=== PATIENT | male | born 1980 | race Caucasian/White ===

== ENCOUNTER 2025-02-07 05:23 | Inpatient (IN) ==
[2025-02-07] MEDS: ONDANSETRON 4 MG/2 ML VIAL IV ONE (05:50)
[2025-02-07] MEDS: FAMOTIDINE/PF 20 MG/2 ML VIAL IV ONE (05:51)
[2025-02-07] MEDS: HYDROmorphone 0.5 MG/0.5 ML SYRINGE IV PRN (05:51)
[2025-02-07] MEDS: 0.9 % SODIUM CHLORIDE 1,000 ML IV ONE ×2 (05:51→06:48)
[2025-02-07 06:04] LABS: Basophils # (Auto) 0.10 K/mcL (0.00-0.30); Basophils % (Auto) 0.6 % (0.0-2.0); Eosinophils # (Auto) 0.46 K/mcL (0.00-0.70); Eosinophils % (Auto) 2.8 % (0.0-7.0); Hematocrit 45.5 % (40.1-51.0); Hemoglobin 14.1 g/dL (13.7-17.5); Lymphocytes # (Auto) 4.38 K/mcL (1.50-4.80); Lymphocytes % (Auto) 26.5 % (15.5-49.0); Mean Corpuscular HGB Conc 31.0 g/dL (31.0-36.0); Monocytes # (Auto) 1.27 K/mcL (0.10-0.90); Monocytes % (Auto) 7.7 % (1.0-12.0); Neutrophils % (Auto) 61.9 % (38.0-78.0); Platelet Count 344 K/mcL (140-440); RBC 4.84 M/mcL (4.63-6.08); WBC 16.5 K/mcL (4.5-11.0)
[2025-02-07 06:32] LABS: ALT/SGPT 90 U/L (<40); AST/SGOT 154 U/L (<40); Albumin 4.1 gm/dL (3.2-5.2); Albumin/Globulin Ratio 1.3 (1.0-2.3); Alkaline Phosphatase 116 U/L (39-117); Anion Gap 15.0 (8.0-16.0); Bilirubin,Total 0.9 mg/dL (0.1-1.0); Blood Urea Nitrogen 38 mg/dL (6-20); Calcium 9.6 mg/dL (8.6-10.4); Carbon Dioxide 16 mmol/L (22-30); Chloride 107 mmol/L (96-108); Globulin 3.2 gm/dL (2.2-3.7); Glucose 150 mg/dL (70-105); Potassium 4.4 mmol/L (3.3-5.1); Sodium 138 mmol/L (133-145)
[2025-02-07] MEDS: HYDROmorphone 0.5 MG/0.5 ML SYRINGE IV ONE ×2 (06:32→07:35)
[2025-02-07] MEDS: PROCHLORPERAZINE 10 MG/2 ML VIAL IV ONE (07:41)
[2025-02-07] MEDS: diphenhydrAMINE 50 MG/ML VIAL IV ONE (07:41)
[2025-02-07] MEDS: DICYCLOMINE 20 MG/2 ML VIAL IM ONE (07:41)
[2025-02-07 08:27] LABS: CRP,High Sensitivity 31.5 mg/L (1.0-3.0)
[2025-02-07] MEDS: ACETAMINOPHEN 1,000 MG/100 ML BAG IV ONE (10:22)
[2025-02-07 11:08] LABS: HDL Cholesterol 55 mg/dL (>40); LDL Cholesterol,Calculated 119 mg/dL (<100); Triglycerides 76 mg/dL (<150)
[2025-02-07] MEDS ORDERED: TACROLIMUS 0.5 MG CAPSULE PO SCH (16:36)
[2025-02-07] MEDS ORDERED: ACETAMINOPHEN 650 MG/65 ML BAG IV PRN (16:36)
[2025-02-07] MEDS: ONDANSETRON 4 MG/2 ML VIAL IV PRN (17:01)
[2025-02-07] MEDS: LACTATED RINGERS 1,000 ML IV SCH ×3 (17:02→23:12)
[2025-02-07] MEDS: PANTOPRAZOLE 40 MG VIAL IV ONE (17:45)
[2025-02-07 18:39] LABS: Hematocrit 47.0 % (40.1-51.0); Hemoglobin 14.5 g/dL (13.7-17.5)
[2025-02-07 18:56] LABS: Anion Gap 13.0 (8.0-16.0); Blood Urea Nitrogen 42 mg/dL (6-20); Calcium 8.7 mg/dL (8.6-10.4); Carbon Dioxide 18 mmol/L (22-30); Chloride 108 mmol/L (96-108); Glucose 171 mg/dL (70-105); Potassium 6.4 mmol/L (3.3-5.1); Sodium 139 mmol/L (133-145)
[2025-02-07] MEDS: TACROLIMUS 1 MG CAPSULE PO SCH (21:03)
[2025-02-07] MEDS: HEPARIN 5,000 UNIT/ML VIAL SQ SCH (21:03)
[2025-02-07 21:31] LABS: POC Blood Urea Nitrogen 45.0 (6-20); POC CO2 18.0 (22-30); POC Calcium, Ionized 1.13 (1.16-1.32); POC Glucose, Random 155.0 (70-105)
[2025-02-07] MEDS: SODIUM ZIRCONIUM CYCLOSILICATE 10 GM PACKET PO ONE (22:14)
[2025-02-07] MEDS: LIDOCAINE 2% URO-JET 10 ML JEL.PF.APP UR ONE (22:14)
[2025-02-07 22:20] LABS: Anion Gap 12.0 (8.0-16.0); Blood Urea Nitrogen 43 mg/dL (6-20); Calcium 8.5 mg/dL (8.6-10.4); Carbon Dioxide 15 mmol/L (22-30); Chloride 111 mmol/L (96-108); Glucose 151 mg/dL (70-105); Potassium 6.8 mmol/L (3.3-5.1); Sodium 138 mmol/L (133-145)
[2025-02-07] MEDS: 0.9 % SODIUM CHLORIDE 10 ML SYRINGE IV SCH (22:41)
[2025-02-07 23:07] LABS: Bilirubin,Urine SMALL mg/dL (Negative); Color,Urine YELLOW; Glucose,Urine (UA) NEGATIVE (Negative); Ketones,Urine NEGATIVE (Negative); Leukocyte Esterase,Urine NEGATIVE /uL (Negative); Mucus,Urine Mod /hpf; PH,Urine 5.5 (5.0-9.0); Protein,Urine TRACE mg/dL (Negative); Specific Gravity,Urine 1.025 (1.000-1.035); Urobilinogen,Urine 0.2 mg/dL
[2025-02-07] MEDS: CALCIUM GLUCONATE 4.65 MEQ in DEXTROSE 5% IN WATER 50 ML IV ONE (23:07)
[2025-02-07] MEDS: CALCIUM GLUCONATE 4.65 MEQ/10 ML VIAL ONE (23:12)
[2025-02-07] MEDS: SODIUM BICARBONATE VIAL 150 MEQ in WATER FOR INJECTION,STERILE 850 ML IV SCH (23:39)
[2025-02-08 01:30] LABS: Hematocrit 46.3 % (40.1-51.0); Hemoglobin 14.4 g/dL (13.7-17.5)
[2025-02-08 01:57] LABS: Anion Gap 13.0 (8.0-16.0); Blood Urea Nitrogen 47 mg/dL (6-20); Calcium 8.7 mg/dL (8.6-10.4); Carbon Dioxide 17 mmol/L (22-30); Chloride 108 mmol/L (96-108); Glucose 152 mg/dL (70-105); Potassium 6.0 mmol/L (3.3-5.1); Sodium 138 mmol/L (133-145)
[2025-02-08] MEDS: SODIUM ZIRCONIUM CYCLOSILICATE 10 GM PACKET PO ONE (02:47)
[2025-02-08] MEDS: METOPROLOL TARTRATE 25 MG TABLET PO ONE (02:50)
[2025-02-08 06:54] LABS: Basophils # (Auto) 0.03 K/mcL (0.00-0.30); Basophils % (Auto) 0.1 % (0.0-2.0); Eosinophils # (Auto) 0 K/mcL (0.00-0.70); Eosinophils % (Auto) 0 % (0.0-7.0); Hematocrit 45.2 % (40.1-51.0); Hemoglobin 14.2 g/dL (13.7-17.5); Lymphocytes # (Auto) 0.84 K/mcL (1.50-4.80); Lymphocytes % (Auto) 3.0 % (15.5-49.0); Mean Corpuscular HGB Conc 31.4 g/dL (31.0-36.0); Monocytes # (Auto) 2.20 K/mcL (0.10-0.90); Monocytes % (Auto) 7.9 % (1.0-12.0); Neutrophils % (Auto) 88.7 % (38.0-78.0); Platelet Count 290 K/mcL (140-440); RBC 4.76 M/mcL (4.63-6.08); WBC 27.9 K/mcL (4.5-11.0)
[2025-02-08 07:00] LABS: C-Reactive Protein 13.1 mg/dL (0.03-0.80)
[2025-02-08 07:01] LABS: ALT/SGPT 261 U/L (<40); AST/SGOT 143 U/L (<40); Albumin 3.9 gm/dL (3.2-5.2); Albumin/Globulin Ratio 1.3 (1.0-2.3); Alkaline Phosphatase 113 U/L (39-117); Anion Gap 14.0 (8.0-16.0); Bilirubin,Direct 0.5 mg/dL (<0.3); Bilirubin,Total 0.7 mg/dL (0.1-1.0); Blood Urea Nitrogen 48 mg/dL (6-20); Calcium 8.5 mg/dL (8.6-10.4); Carbon Dioxide 18 mmol/L (22-30); Chloride 107 mmol/L (96-108); Globulin 3.1 gm/dL (2.2-3.7); Glucose 135 mg/dL (70-105); Phosphorous 3.7 mg/dL (2.5-4.5); Potassium 5.3 mmol/L (3.3-5.1); Sodium 139 mmol/L (133-145); Triglycerides 85 mg/dL (<150); Uric Acid 10.3 mg/dL (2.5-8.0)
[2025-02-08] MEDS: PANTOPRAZOLE 40 MG VIAL IV SCH (08:21)
[2025-02-08] MEDS: CALCITRIOL 0.25 MCG CAPSULE PO SCH (08:22)
[2025-02-08] MEDS: TACROLIMUS 0.5 MG CAPSULE PO SCH (08:22)
[2025-02-08] MEDS: SODIUM BICARBONATE VIAL 150 MEQ in WATER FOR INJECTION,STERILE 850 ML IV SCH ×2 (08:41→18:29)
[2025-02-08 09:37] LABS: Anion Gap 13.0 (8.0-16.0); Blood Urea Nitrogen 47 mg/dL (6-20); Calcium 8.3 mg/dL (8.6-10.4); Carbon Dioxide 20 mmol/L (22-30); Chloride 106 mmol/L (96-108); Glucose 141 mg/dL (70-105); Potassium 5.6 mmol/L (3.3-5.1); Sodium 139 mmol/L (133-145)
[2025-02-08] MEDS: IPRATROPIUM/ALBUTEROL 3 ML AMPUL.NEB NEB PRN (10:25)
[2025-02-08] MEDS: IPRATROPIUM/ALBUTEROL 3 ML AMPUL.NEB NEB ONE (12:25)
[2025-02-08] MEDS: IPRATROPIUM/ALBUTEROL 3 ML AMPUL.NEB NEB SCH (14:06)
[2025-02-08] MEDS: FUROSEMIDE 100 MG/10 ML VIAL IV ONE (14:18)
[2025-02-08] MEDS: POLYETHYLENE GLYCOL 3350 17 GM PACKET PO ONE (14:18)
[2025-02-08 16:26] LABS: Anion Gap 12.0 (8.0-16.0); Blood Urea Nitrogen 41 mg/dL (6-20); Calcium 7.7 mg/dL (8.6-10.4); Carbon Dioxide 34 mmol/L (22-30); Chloride 90 mmol/L (96-108); Glucose 153 mg/dL (70-105); Potassium 4.7 mmol/L (3.3-5.1); Sodium 136 mmol/L (133-145)
[2025-02-08] MEDS: OXYBUTYNIN CHLORIDE 5 MG TAB.XL.24H PO SCH (16:32)
[2025-02-08] MEDS: MELATONIN 3 MG TABLET PO SCH (20:08)
[2025-02-08] MEDS: ZOLPIDEM 5 MG TABLET PO SCH (20:08)
[2025-02-08 20:40] LABS: Anion Gap 13.0 (8.0-16.0); Blood Urea Nitrogen 48 mg/dL (6-20); Calcium 8.1 mg/dL (8.6-10.4); Carbon Dioxide 22 mmol/L (22-30); Chloride 99 mmol/L (96-108); Glucose 161 mg/dL (70-105); Potassium 4.9 mmol/L (3.3-5.1); Sodium 134 mmol/L (133-145)
[2025-02-08] MEDS: METOPROLOL TARTRATE 50 MG TABLET PO SCH (23:20)
[2025-02-08] MEDS: CYCLOBENZAPRINE 10 MG TABLET PO PRN (23:55)
[2025-02-09] MEDS ORDERED: VANCOMYCIN PER PHARMACY IV SCH (03:15)
[2025-02-09] MEDS ORDERED: 0.9 % SODIUM CHLORIDE 10 ML SYRINGE IV PRN (03:19)
[2025-02-09] MEDS ORDERED: ALTEPLASE 2 MG VIAL IV PRN (03:19)
[2025-02-09] MEDS: DOXYCYCLINE 100 MG in DEXTROSE 5% IN WATER 100 ML IV ONE (03:25)
[2025-02-09] MEDS: LEVOFLOXACIN 750 MG/150 ML BAG IV SCH (03:38)
[2025-02-09] MEDS: VANCOMYCIN 2,000 MG in 0.9 % SODIUM CHLORIDE 500 ML IV ONE (04:31)
[2025-02-09 07:30] LABS: ALT/SGPT 144 U/L (<40); AST/SGOT 57 U/L (<40); Albumin 3.5 gm/dL (3.2-5.2); Albumin/Globulin Ratio 1.1 (1.0-2.3); Alkaline Phosphatase 86 U/L (39-117); Anion Gap 16.0 (8.0-16.0); Bilirubin,Direct 0.6 mg/dL (<0.3); Bilirubin,Total 1.1 mg/dL (0.1-1.0); Blood Urea Nitrogen 55 mg/dL (6-20); Calcium 7.8 mg/dL (8.6-10.4); Carbon Dioxide 21 mmol/L (22-30); Chloride 96 mmol/L (96-108); Globulin 3.3 gm/dL (2.2-3.7); Glucose 140 mg/dL (70-105); Phosphorous 3.8 mg/dL (2.5-4.5); Potassium 5.1 mmol/L (3.3-5.1); Sodium 133 mmol/L (133-145); Triglycerides 117 mg/dL (<150); Uric Acid 10.6 mg/dL (2.5-8.0)
[2025-02-09 07:41] LABS: Basophils # (Auto) 0.04 K/mcL (0.00-0.30); Basophils % (Auto) 0.1 % (0.0-2.0); Eosinophils # (Auto) 0 K/mcL (0.00-0.70); Eosinophils % (Auto) 0 % (0.0-7.0); Hematocrit 43.7 % (40.1-51.0); Hemoglobin 13.7 g/dL (13.7-17.5); Lymphocytes # (Auto) 1.29 K/mcL (1.50-4.80); Lymphocytes % (Auto) 4.0 % (15.5-49.0); Mean Corpuscular HGB Conc 31.4 g/dL (31.0-36.0); Monocytes # (Auto) 2.65 K/mcL (0.10-0.90); Monocytes % (Auto) 8.2 % (1.0-12.0); Neutrophils % (Auto) 86.5 % (38.0-78.0); Platelet Count 264 K/mcL (140-440); RBC 4.65 M/mcL (4.63-6.08); WBC 32.2 K/mcL (4.5-11.0)
[2025-02-09 07:46] LABS: C-Reactive Protein 45.8 mg/dL (0.03-0.80)
[2025-02-09] MEDS: LORazepam 2 MG/ML VIAL IV ONE ×2 (08:08→12:56)
[2025-02-09 08:45] LABS: Partial Thromboplastin Time 38.4 sec (20.0-37.0)
[2025-02-09 09:19] LABS: Creatinine, Spot Urine 288.0 mg/dL (39.0-259.0); Pro:Crea Ratio 0.32 (<0.20); Protein, Spot Urine 91.0 mg/dL
[2025-02-09] MEDS: CEFEPIME 1 GM VIAL IV SCH (09:45)
[2025-02-09] MEDS: metroNIDAZOLE 500 MG/100 ML BAG IV SCH (09:45)
[2025-02-09] MEDS: 0.9 % SODIUM CHLORIDE 10 ML SYRINGE IV SCH (09:47)
[2025-02-09] MEDS: HEPARIN 10 UNITS/ML 5ML FLUSH IV SCH ×2 (09:47)
[2025-02-09 10:39] LABS: INR 1.3 (0.9-1.1); Prothrombin Time 16.9 sec (11.9-14.5)
[2025-02-09] MEDS ORDERED: PIPERACILLIN SODIUM/TAZOBACTAM 4.5 GM in DEXTROSE 5% IN WATER 50 ML IV SCH (11:15)
[2025-02-09] MEDS: 0.9 % SODIUM CHLORIDE 500 ML IV ONE (12:04)
[2025-02-09] MEDS: PIPERACILLIN SODIUM/TAZOBACTAM 4.5 GM in DEXTROSE 5% IN WATER 50 ML IV ONE (12:33)
[2025-02-09] MEDS: LORazepam 2 MG/ML VIAL ONE (12:56)
[2025-02-09] MEDS: 0.45 % SODIUM CHLORIDE 1,000 ML IV SCH (14:01)
[2025-02-09] MEDS: ADENOSINE 3 MG/ML VIAL IV ONE ×2 (15:20)
[2025-02-09] MEDS: PIPERACILLIN SODIUM/TAZOBACTAM 4.5 GM in DEXTROSE 5% IN WATER 100 ML IV SCH (16:04)
[2025-02-09] MEDS: MAGNESIUM SULFATE 2 GM/50 ML BAG IV ONE (16:04)
[2025-02-09] MEDS: ALLOPURINOL 100 MG TABLET PO SCH (16:06)
[2025-02-09] MEDS: METOPROLOL TARTRATE 5 MG/5 ML VIAL IV ONE ×2 (16:37→17:03)
[2025-02-09] MEDS: DILTIAZEM 25 MG/5 ML VIAL IV ONE ×2 (16:57)
[2025-02-09] MEDS: METOPROLOL TARTRATE 5 MG/5 ML VIAL IV SCH (19:09)
[2025-02-09 20:15] LABS: Chloride,Urine Random 83 mmol/L (110-250); Sodium, Urine Random 99 mmol/L
[2025-02-09] MEDS: MELATONIN 3 MG TABLET PO SCH (20:21)
[2025-02-09] MEDS: ZOLPIDEM 5 MG TABLET PO SCH (20:21)
[2025-02-09 21:25] VITALS: TEMP 98.6
[2025-02-09 21:26] VITALS: O2SAT 94
[2025-02-12 16:09] LABS: BK Virus DNA BPCR Quant Bld-SO Negative (Negative)
[2025-02-12 18:52] LABS: EBV Early Antigen-SO < 9.00 U/mL
== END 2025-02-09 22:10 | disposition short-term general hospital (02) | DRG 438 ==
LOC: ED 05:23 → MEDSUR 16:31 → ICU 02-08 23:04
PROVIDERS: ADMIT Student in an Organized Health Care Education/Training Program; ATTEND Student in an Organized Health Care Education/Training Program